=== PATIENT | male | born 2000 ===

== ENCOUNTER → 2025-05-19 | Outpatient (REF) | payer OTHER ==
[2025-05-19 14:04] LABS: Trichomonas vaginalis (AMP) NOT DETECTED (NEGATIVE)
[2025-05-19 14:28] LABS: GC DNA AMPLIFICATION POSITIVE (NEGATIVE)
== END ==
LOC: M LAB REF 11:57
PROVIDERS: ATTEND Nurse Practitioner Family
DX: R30.0 Dysuria (principal)